=== PATIENT | female | born 1995 | race Caucasian/White ===

== ENCOUNTER 2021-04-15 22:21 | Emergency (ER) | payer OTHER ==
[~2021-04-15] VITALS: Ht 172.7 cm; Wt 66.2 kg
[2021-04-15 22:25] VITALS: BP 108/67
--- NOTE | 2021-04-15 22:28 | NUR ---
TO LOBBY A/W BED AMBULATORY
[2021-04-16 00:26] LABS: APPEARANCE,URINE CLEAR (CLEAR); BILIRUBIN,URINE NEGATIVE (NEGATIVE); BLOOD, URINE NEGATIVE (NEGATIVE); COLOR,URINE YELLOW (YELLOW); LEUKOCYTE ESTERASE ,URINE 1+ (NEGATIVE); NITRITE, URINE NEGATIVE (NEGATIVE); UGLUCOSE NEGATIVE (NEGATIVE)
[2021-04-16 00:31] LABS: RBC,URINE 0-5 /HPF (0-5); WBC,URINE 20-60 /HPF (0-5)
--- NOTE | 2021-04-16 00:35 | NUR ---
PT TAKEN TO BED 4
[2021-04-16] MEDS ORDERED: CEPH-588 PO (01:30)
--- NOTE | 2021-04-16 01:33 | NUR ---
BOYFRIEND AT BEDSIDE
[2021-04-16] MEDS: cephALEXin 500 MG CAP PO ONE (01:43)
[2021-04-16 02:03] VITALS: BP 108/67
[2021-04-24] MEDS ORDERED: AMOX-999 PO (12:08)
== END 2021-04-16 02:03 | disposition home or self-care (01) ==
LOC: MED 22:21
DX: N39.0 Urinary tract infection, site not specified (principal); R19.7 Diarrhea, unspecified
CPT/HCPCS: 81001; 81025; 87086; 99283